=== PATIENT | male | born 1960 | race Caucasian/White ===

== ENCOUNTER 2019-10-07 11:41 | Outpatient (CLI) | payer OTHER, SELFPAY ==
[2019-10-07 11:53] LABS: Basophils Absolute Auto 0.05 K/mm3 (0.00-0.10); Basophils Percent Auto 0.6 % (0.0-1.0); Eosinophils Absolute Auto 0.03 K/mm3 (0.02-0.50); Eosinophils Percent Auto 0.4 % (1.0-6.0); Hematocrit 40.4 % (40.0-54.0); Hemoglobin 14.2 g/dL (14.0-18.0); Immature Granulocyte Absolute 0.03 K/mm3 (0.00-0.00); Immature Granulocyte Percent A 0.4 % (0.0-0.0); Lymphocytes Absolute Auto 2.85 K/mm3 (1.10-4.50); Lymphocytes Percent Auto 35.8 % (18.0-42.0); Mean Corpuscular HGB Conc 35.1 g/dL (32.0-36.0); Mean Corpuscular Hemoglobin 32.7 pg (27.0-31.0); Mean Corpuscular Volume 93.1 fL (78.0-102.0); Mean Platelet Volume 9.5 fl (8.7-11.0); Monocytes Absolute Auto 0.71 K/mm3 (0.10-0.90); Monocytes Percent Auto 8.9 % (2.0-11.0); Neutrophils Absolute Auto 4.3 K/mm3 (1.7-7.2); Neutrophils Percent Auto 53.9 % (50.0-70.0); Platelet Count Result 280 K/mm3 (150-420); Red Blood Count 4.34 M/mm3 (4.70-6.10)
== END 2019-10-07 11:42 | disposition home or self-care (01) ==
LOC: CHSLAB 11:43
PROVIDERS: PCP Internal Medicine; Visit Provider Internal Medicine Hematology & Oncology
DX: D64.9 Anemia, unspecified (principal)
CPT/HCPCS: 36415; 85025

== ENCOUNTER 2019-11-12 09:27 | Outpatient (CLI) | payer OTHER, SELFPAY ==
[2019-11-12 10:59] LABS: Prostate Specific Antigen < 0.1 ng/mL (< OR = 4.0)
== END 2019-11-12 09:28 | disposition home or self-care (01) ==
PROVIDERS: PCP Internal Medicine; Visit Provider Urology
DX: C61 Malignant neoplasm of prostate (principal)
CPT/HCPCS: 36415; 84153

== ENCOUNTER 2020-01-16 14:12 | Outpatient (CLI) | payer OTHER, SELFPAY ==
[2020-01-16 15:19] LABS: SARS-CoV-2 Ag Negative (Negative)
== END 2020-01-16 14:13 | disposition home or self-care (01) ==
LOC: CHSLAB 14:15
PROVIDERS: PCP Internal Medicine; Visit Provider Internal Medicine
DX: Z20.828 Contact with and (suspected) exposure to other viral communicable diseases (principal)
CPT/HCPCS: 87426

== ENCOUNTER 2020-02-14 08:44 | Outpatient (CLI) | payer OTHER, SELFPAY ==
[2020-02-14 08:54] LABS: Add Urine Microscopic? NO; Appearance Urine Clear (Clear); Bilirubin Urine Negative (Negative); Blood Urine Negative (Negative); Color Urine Yellow (Yellow); Glucose Urine UA Negative (Negative); Ketones Urine Negative (Negative); Leukocyte Esterase Ur Negative (Negative); Nitrate Urine Negative (Negative); Protein Urine Negative (Negative); Specific Grav Ur 1.025 (1.010-1.020); Urobilinogen Urine 0.2 mg/dL (0.2-1.0)
[2020-02-14 09:35] LABS: Hemoglobin A1C 5.5 % (<5.7)
[2020-02-14 09:56] LABS: Alanine Aminotransferase 31 U/L (16-63); Albumin Level 3.9 g/dL (3.4-5.0); Alkaline Phosphatase 83 U/L (46-116); Anion Gap 7 mmol/L (8-16); Aspartate Amino Transferase 17 U/L (15-37); Bilirubin,Total 0.5 mg/dL (0.00-1.00); Blood Urea Nitrogen 17 mg/dL (7-18); Calcium 8.8 mg/dL (8.5-10.1); Carbon Dioxide 27 mmol/L (21-32); Chloride 103 mmol/L (98-108); Cholesterol 198 mg/dL (0-200); Creatine Kinase 82 U/L (39-308); Estimated Glomerular Filt Rate > 60; Glucose 103 mg/dL (70-99); HDL Direct 34 mg/dL (40-60); LDL Cholesterol Calculated 129 mg/dL (<130); Osmolality Calculated 285 mOsm/kg (285-295); Potassium 4.1 mmol/L (3.5-5.1); Sodium 137 mmol/L (136-145); Total Protein 7.8 g/dL (6.4-8.2); Triglycerides 174 mg/dL (0-150)
== END 2020-02-14 08:45 | disposition home or self-care (01) ==
LOC: CHSLAB 08:46
PROVIDERS: PCP Internal Medicine; Visit Provider Internal Medicine
DX: E78.2 Mixed hyperlipidemia (principal); I10 Essential (primary) hypertension; R73.01 Impaired fasting glucose
CPT/HCPCS: 36415; 80053; 80061; 81003; 82550; 83036

== ENCOUNTER 2020-02-27 10:15 | Outpatient (CLI) | payer OTHER, SELFPAY ==
[2020-02-27 10:44] LABS: SARS-CoV-2 Ag Negative (Negative)
== END 2020-02-27 10:16 | disposition home or self-care (01) ==
LOC: CHSLAB 10:16
PROVIDERS: PCP Internal Medicine; Visit Provider Internal Medicine
DX: Z20.828 Contact with and (suspected) exposure to other viral communicable diseases (principal)
CPT/HCPCS: 87426

== ENCOUNTER 2020-05-18 12:05 | Outpatient (CLI) | payer OTHER, SELFPAY ==
[2020-05-18 14:06] LABS: Prostate Specific Antigen < 0.1 ng/mL (< OR = 4.0)
== END 2020-05-18 12:06 | disposition home or self-care (01) ==
LOC: CHSLAB 12:07
PROVIDERS: PCP Internal Medicine; Visit Provider Urology
DX: C61 Malignant neoplasm of prostate (principal)
CPT/HCPCS: 36415; 84153

== ENCOUNTER 2020-12-31 09:14 | Outpatient (CLI) | payer OTHER, SELFPAY ==
[2020-12-31 09:39] LABS: Add Urine Microscopic? NO; Appearance Urine Clear (Clear); Bilirubin Urine Negative (Negative); Blood Urine Negative (Negative); Color Urine Yellow (Yellow); Glucose Urine UA Negative (Negative); Ketones Urine Negative (Negative); Leukocyte Esterase Ur Negative (Negative); Nitrate Urine Negative (Negative); Protein Urine Negative (Negative); Specific Grav Ur 1.025 (1.010-1.020)
[2020-12-31 09:40] LABS: Hemoglobin A1C 5.5 % (<5.7)
[2020-12-31 10:23] LABS: Alanine Aminotransferase 35 U/L (16-63); Albumin Level 3.9 g/dL (3.4-5.0); Alkaline Phosphatase 94 U/L (46-116); Anion Gap 9 mmol/L (8-16); Aspartate Amino Transferase 17 U/L (15-37); Blood Urea Nitrogen 18 mg/dL (7-18); Carbon Dioxide 28 mmol/L (21-32); Chloride 103 mmol/L (98-108); Cholesterol 198 mg/dL (0-200); Creatine Kinase 113 U/L (39-308); Estimated Glomerular Filt Rate > 60; Glucose 95 mg/dL (70-99); HDL Direct 35 mg/dL (40-60); LDL Cholesterol Calculated 142 mg/dL (<130); Osmolality Calculated 291 mOsm/kg (285-295); Sodium 140 mmol/L (136-145); Total Protein 7.6 g/dL (6.4-8.2); Triglycerides 106 mg/dL (0-150)
== END 2020-12-31 09:15 | disposition home or self-care (01) ==
LOC: CHSLAB 09:16
PROVIDERS: PCP Internal Medicine; Visit Provider Internal Medicine
DX: E78.2 Mixed hyperlipidemia (principal); I10 Essential (primary) hypertension; R73.01 Impaired fasting glucose
CPT/HCPCS: 36415; 80053; 80061; 81003; 82550; 83036

== ENCOUNTER 2021-02-06 11:21 | Outpatient (CLI) | payer OTHER, SELFPAY ==
[2021-02-06 12:29] LABS: Prostate Specific Antigen < 0.1 ng/mL (< OR = 4.0)
== END 2021-02-06 11:22 | disposition home or self-care (01) ==
LOC: CHSLAB 11:23
PROVIDERS: PCP Internal Medicine; Visit Provider Urology
DX: C61 Malignant neoplasm of prostate (principal)
CPT/HCPCS: 36415; 84153

== ENCOUNTER 2021-08-26 08:04 | Outpatient (CLI) | payer OTHER, SELFPAY ==
[2021-08-26 08:33] LABS: Hemoglobin A1C 5.6 % (<5.7)
[2021-08-26 08:56] LABS: Alanine Aminotransferase 36 U/L (16-63); Albumin Level 3.8 g/dL (3.4-5.0); Alkaline Phosphatase 92 U/L (46-116); Anion Gap 8 mmol/L (8-16); Aspartate Amino Transferase 21 U/L (15-37); Bilirubin,Total 0.4 mg/dL (0.00-1.00); Blood Urea Nitrogen 13 mg/dL (7-18); Calcium 8.6 mg/dL (8.5-10.1); Carbon Dioxide 26 mmol/L (21-32); Chloride 105 mmol/L (98-108); Cholesterol 153 mg/dL (0-200); Creatine Kinase 81 U/L (39-308); Estimated Glomerular Filt Rate > 60; Glucose 110 mg/dL (70-99); HDL Direct 38 mg/dL (40-60); LDL Cholesterol Calculated 90 mg/dL (<130); Osmolality Calculated 289 mOsm/kg (285-295); Potassium 3.7 mmol/L (3.5-5.1); Sodium 139 mmol/L (136-145); Total Protein 7.8 g/dL (6.4-8.2); Triglycerides 124 mg/dL (0-150)
== END 2021-08-26 08:05 | disposition home or self-care (01) ==
LOC: CHSLAB 08:06
PROVIDERS: PCP Internal Medicine; Visit Provider Internal Medicine
DX: E78.2 Mixed hyperlipidemia (principal); R73.01 Impaired fasting glucose; I10 Essential (primary) hypertension
CPT/HCPCS: 36415; 80053; 80061; 82550; 83036

== ENCOUNTER 2021-09-13 09:27 | Outpatient (CLI) | payer OTHER, SELFPAY ==
[2021-09-13 10:56] LABS: Prostate Specific Antigen < 0.1 ng/mL (< OR = 4.0)
== END 2021-09-13 09:28 | disposition home or self-care (01) ==
LOC: CHSLAB 09:30
PROVIDERS: PCP Internal Medicine; Visit Provider Urology
DX: C61 Malignant neoplasm of prostate (principal)
CPT/HCPCS: 36415; 84153

== ENCOUNTER 2022-03-12 07:42 | Outpatient (CLI) | payer OTHER, SELFPAY ==
[2022-03-12 08:02] LABS: Add Urine Microscopic? YES; Appearance Urine Clear (Clear); Basophils Absolute Auto 0.07 K/mm3 (0.00-0.10); Basophils Percent Auto 0.9 % (0.0-1.0); Bilirubin Urine Negative (Negative); Blood Urine Trace-Intact (Negative); Color Urine Light Yellow (Yellow); Eosinophils Absolute Auto 0.11 K/mm3 (0.02-0.50); Eosinophils Percent Auto 1.4 % (1.0-6.0); Glucose Urine UA Negative (Negative); Hematocrit 41.7 % (40.0-54.0); Hemoglobin 14.2 g/dL (14.0-18.0); Immature Granulocyte Absolute 0.02 K/mm3 (0.00-0.00); Immature Granulocyte Percent A 0.3 % (0.0-0.0); Ketones Urine Negative (Negative); Leukocyte Esterase Ur Negative (Negative); Lymphocytes Percent Auto 44.8 % (18.0-42.0); Mean Corpuscular HGB Conc 34.1 g/dL (32.0-36.0); Mean Corpuscular Hemoglobin 32.3 pg (27.0-31.0); Monocytes Absolute Auto 0.79 K/mm3 (0.10-0.90); Monocytes Percent Auto 10.1 % (2.0-11.0); Neutrophils Absolute Auto 3.3 K/mm3 (1.7-7.2); Neutrophils Percent Auto 42.5 % (50.0-70.0); Nitrate Urine Negative (Negative); Platelet Count Result 291 K/mm3 (150-420); Protein Urine Negative (Negative); Red Blood Count 4.39 M/mm3 (4.70-6.10); Red Cell Distribution Width 11.1 % (11.6-14.4); Specific Grav Ur 1.025 (1.010-1.020); Urobilinogen Urine 0.2 mg/dL (0.2-1.0); White Blood Count 7.8 K/mm3 (4.8-10.8)
[2022-03-12 08:11] LABS: Hemoglobin A1C 5.3 % (<5.7)
[2022-03-12 08:34] LABS: Alanine Aminotransferase 25 U/L (16-63); Albumin Level 3.9 g/dL (3.4-5.0); Alkaline Phosphatase 86 U/L (46-116); Anion Gap 7 mmol/L (8-16); Aspartate Amino Transferase 16 U/L (15-37); Bilirubin,Total 0.4 mg/dL (0.00-1.00); Blood Urea Nitrogen 19 mg/dL (7-18); Calcium 8.5 mg/dL (8.5-10.1); Carbon Dioxide 28 mmol/L (21-32); Chloride 103 mmol/L (98-108); Cholesterol 158 mg/dL (0-200); Creatine Kinase 67 U/L (39-308); Estimated Glomerular Filt Rate > 60; Glucose 104 mg/dL (70-99); HDL Direct 38 mg/dL (40-60); LDL Cholesterol Calculated 97 mg/dL (<130); Osmolality Calculated 288 mOsm/kg (285-295); Potassium 4.2 mmol/L (3.5-5.1); Sodium 138 mmol/L (136-145); Total Protein 7.7 g/dL (6.4-8.2); Triglycerides 117 mg/dL (0-150)
[2022-03-12 08:35] LABS: Prostate Specific Antigen < 0.1 ng/mL (< OR = 4.0)
[2022-03-12 08:36] LABS: Bacteria Urine Trace /hpf; RBC Urine 0-2 /hpf (0-2); Squamous Epithelial Cell Urine Rare /hpf (Few); WBC Urine None seen /hpf (0-3)
== END 2022-03-12 07:43 | disposition home or self-care (01) ==
PROVIDERS: PCP Internal Medicine; Visit Provider Urology
DX: C61 Malignant neoplasm of prostate (principal); R73.01 Impaired fasting glucose; I10 Essential (primary) hypertension; E78.2 Mixed hyperlipidemia; Z85.46 Personal history of malignant neoplasm of prostate
CPT/HCPCS: 36415; 80053; 80061; 81001; 82550; 83036; 84153; 85025

== ENCOUNTER 2022-05-03 10:22 | Outpatient (CLI) | payer OTHER, SELFPAY ==
--- NOTE | ~2022-05-03 | US_ITS ---
EXAMINATION: US aorta DATE: 05/03/2022 11:02 INDICATION: TECHNIQUE: Grayscale, color Doppler, and pulsed Doppler images of the aorta and common iliac arteries were obtained. COMPARISON: None. FINDINGS: The aorta displays minimal ectasia of the mid and distal aorta, measuring up to 2.1 cm in the mid aor ta. No aneurysm. The right common iliac artery is normal in caliber. The left common iliac artery is normal in caliber. IMPRESSION: 1. No abdominal aortic aneurysm. Reviewed, dictated and finalized at location K. 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
== END 2022-05-03 10:23 | disposition home or self-care (01) ==
LOC: CHSIMG 10:23
PROVIDERS: PCP Internal Medicine; Visit Provider Internal Medicine
DX: Z13.6 Encounter for screening for cardiovascular disorders (principal)
CPT/HCPCS: 76775

== ENCOUNTER 2022-09-10 08:28 | Outpatient (CLI) | payer OTHER, SELFPAY ==
[2022-09-10 08:59] LABS: Appearance Urine Clear (Clear); Bilirubin Urine Negative (Negative); Blood Urine Negative (Negative); Color Urine Light Yellow (Yellow); Glucose Urine UA Negative (Negative); Ketones Urine Negative (Negative); Leukocyte Esterase Ur Negative (Negative); Nitrate Urine Negative (Negative); Protein Urine Negative (Negative); Specific Grav Ur 1.015 (1.010-1.020); Urobilinogen Urine 0.2 mg/dL (0.2-1.0); pH Urine 6.5 (5.0-8.0)
[2022-09-10 09:05] LABS: Creatinine Urine 174.07 mg/dL (40-278); MALB Creatinine Ratio 7.4 mg/g (0-30); Microalbumin Urine Random < 13.0 mg/L
[2022-09-10 09:07] LABS: Hemoglobin A1C 5.2 % (<5.7)
[2022-09-10 09:24] LABS: Add Urine Microscopic? NO
[2022-09-10 09:45] LABS: Alanine Aminotransferase 31 U/L (16-63); Alkaline Phosphatase 85 U/L (46-116); Anion Gap 10 mmol/L (8-16); Aspartate Amino Transferase 21 U/L (15-37); Bilirubin,Total 0.4 mg/dL (0.00-1.00); Blood Urea Nitrogen 15 mg/dL (7-18); Calcium 8.9 mg/dL (8.5-10.1); Carbon Dioxide 27 mmol/L (21-32); Chloride 103 mmol/L (98-108); Cholesterol 139 mg/dL (0-200); Creatine Kinase 224 U/L (39-308); Estimated Glomerular Filt Rate > 60; Glucose 118 mg/dL (70-99); HDL Direct 41 mg/dL (40-60); LDL Cholesterol Calculated 86 mg/dL (<130); Osmolality Calculated 291 mOsm/kg (285-295); Sodium 140 mmol/L (136-145); Total Protein 7.5 g/dL (6.4-8.2); Triglycerides 59 mg/dL (0-150)
[2022-09-10 09:49] LABS: Prostate Specific Antigen < 0.1 ng/mL (< OR = 4.0)
== END 2022-09-10 08:29 | disposition home or self-care (01) ==
LOC: CHSLAB 08:29
PROVIDERS: PCP Internal Medicine; Visit Provider Urology
DX: C61 Malignant neoplasm of prostate (principal); E78.2 Mixed hyperlipidemia; I10 Essential (primary) hypertension; R73.01 Impaired fasting glucose
CPT/HCPCS: 36415; 80053; 80061; 81003; 82043; 82550; 83036; 84153

== ENCOUNTER → 2022-09-27 11:26 | Outpatient (CLI) | payer OTHER, SELFPAY ==
--- NOTE | ~2022-09-27 | CT_ITS ---
CT Scan of the Chest without Contrast: Clinical Indication: Lung cancer screening, personal history of nicotine dependence Technique: Contiguous sections were acquired throughout the chest without intravenous contrast. Dose reduction technique was used on this scan by utilizing automated exposure control and iterative recon struction technique. The dose-length product (DLP) was 154.63 mGy-cm. Findings: There is no evidence of any significant mediastinal, hilar or axillary lymphadenopathy. The mediastin al soft tissues appear normal. There is no evidence of pleural or pericardial effusion. There is an 8 mm nodule the right lower lobe peripherally, possible tiny calcification within it (axi al image 82). Images through the upper abdomen reveal no abnormalities. Impression: Lung RADS 4A: Suspicious. 3 month follow-up CT recommended. Reviewed, dictated and finalized at location . Impression: Lung RADS 4A: Suspicious. 3 month follow-up CT recommended.
== END ==
PROVIDERS: PCP Internal Medicine; Visit Provider Internal Medicine
DX: Z12.2 Encounter for screening for malignant neoplasm of respiratory organs (principal); Z87.891 Personal history of nicotine dependence; R91.8 Other nonspecific abnormal finding of lung field
CPT/HCPCS: 71271

== ENCOUNTER 2022-10-20 00:28 | Day surgery (SDC) | payer OTHER, SELFPAY ==
[2022-10-11 15:02] VITALS: BMI 29.6
[2022-10-20 06:28] VITALS: BP 112/79; PULSE 52; RESP 18; TEMP 36.2; O2SAT 100
[2022-10-20] MEDS: LACTATED RINGERS 1,000 ML 150 ML IV CONT (06:35)
--- NOTE | 2022-10-20 06:46 | P.PNAN_ITS ---
Anes - Initial Pre Proc Eval Procedure: Operation Date: 10/20/22 07:30 Proposed Procedures p Screening Colonoscopy - Brayden Parson DO Date/Time: 10/20/22 06:46 Surgeon: Brayden Parson DO Pre Op Diagnosis: neoplasm screening Patient Data Age: 62 Gender: M Height: 1.8 m Weight: 96.4 kg Last Vital Signs Temp 36.2 C L 10/20/22 06:28 Pulse 52 L 10/20/22 06:28 Resp 18 10/20/22 06:28 BP 112/79 10/20/22 06:28 Pulse Ox 100 10/20/22 06:28 O2 Del Method Room Air 10/20/22 06:28 Allergies Allergy/AdvReac Type Severity Reaction Status Date / Time alprazolam AdvReac Severe confusion/a Verified 10/20/22 06:27 gitation morphine AdvReac Intermediate HALLUCINATE Verified 10/20/22 06:27 Home Medications Medication Instructions Recorded Confirmed Type amlodipine 10 mg tablet 10 mg PO DAILY 10/11/22 10/11/22 History aspirin 81 mg tablet 81 mg PO DAILY 10/11/22 10/11/22 History pravastatin 10 mg tablet 10 mg PO DAILY 10/11/22 10/11/22 History Patient hx anesthesia problems: none Family hx anesthesia problems: none Results Review: All pre-operative results and documents have been reviewed as part of the pre- operative evaluation. ON LICENSE OF [facility] Past Medical History Medical History (Updated 10/20/22 @ 06:46 by Nahum Kumar MD) HTN (hypertension) Hyperlipidemia Prostate CA Surgical History Surgical History (Updated 10/20/22 @ 06:47 by Nahum Kumar MD) H/O prostatectomy Social History Social History Smoking status: Former smoker Substance use type: does not use Living arrangements: with family Spiritual care concerns: No Anes - Eval Final PreProcedure Day of Procedure 10/20/22 06:46 Patient weight: overweight Heart: regular rate and rhythm Lungs: clear to auscultation Airway: Mallampati scale class II Neurological: alert and oriented Last oral intake: >/= 8 hours ASA classification: III Emergent: no Anesthetic plan: proceed Anesthesia type and monitoring: general GIVS and standard monitoring Results Review: All pre-operative results and documents have been reviewed as part of the pre- operative evaluation. Informed Consent: The patient's anesthetic plan and its attendant risks and benefits were discussed with the patient/family/POA. Questions were solicited and answers provided to the satisfaction of the patient/family/POA.
--- NOTE | 2022-10-20 07:32 | PM.IMHP ---
H&P: HPI History of Present Illness Date/Time: 10/20/22 07:32 Chief Complaint: Screening for colorectal cancer Narrative: 62 yo man presents for colonoscopy. Last done 5 years ago. Denies hematochezia or melena. + Fam hx colon cancer in his mom. Review of Systems Review of Systems: All systems reviewed & are unremarkable except as noted in HPI and below Constitutional: Constitutional: Denies chills, Denies fever(s), Denies headache(s) and Denies weight loss Eyes: Eyes: Denies change in vision ENT: Denies dizziness, Denies headache(s), Denies neck mass and Denies throat swelling Cardiovascular: Cardiovascular: Denies chest pain, Denies lightheadedness and Denies dyspnea Respiratory: Respiratory: Denies cough, Denies dyspnea and Denies wheezing Gastrointestinal: Gastrointestinal: Denies abdominal pain, Denies change in bowel habits, Denies nausea and Denies vomiting Genitourinary: Genitourinary: Denies hematuria and Denies dysuria Musculoskeletal: Musculoskeletal: Reports as per HPI Integumentary/Breasts: Skin/Breast: Reports as per HPI Neurologic: Denies dizziness and Denies headache(s) Allergic/Immunologic: Allergic/Immunologic: Denies throat swelling and Denies wheezing [facility] Past Medical History Medical History (Updated 10/20/22 @ 07:33 by Brayden Parson DO) Family hx of colon cancer HTN (hypertension) Hyperlipidemia Prostate CA Surgical History Surgical History (Updated 10/20/22 @ 06:47 by Nahum Kumar MD) H/O prostatectomy Social History Social History Smoking status: Former smoker Substance use type: does not use Living arrangements: with family Spiritual care concerns: No Meds Home Medications and Allergies Home Medications Medication Instructions Recorded Confirmed Type amlodipine 10 mg tablet 10 mg PO DAILY 10/11/22 10/11/22 History aspirin 81 mg tablet 81 mg PO DAILY 10/11/22 10/11/22 History pravastatin 10 mg tablet 10 mg PO DAILY 10/11/22 10/11/22 History Allergies Allergy/AdvReac Type Severity Reaction Status Date / Time alprazolam AdvReac Severe confusion/a Verified 10/20/22 06:27 gitation morphine AdvReac Intermediate HALLUCINATE Verified 10/20/22 06:27 Vital Signs Vital Signs - 24 hr 10/20/22 06:28 Temperature 36.2 C L Pulse Rate 52 L Respiratory Rate 18 Blood Pressure 112/79 Pulse Oximetry 100 Oxygen Delivery Room Air Exam Const: General: no acute distress and alert Orientation/consciousness: patient oriented x3 HENMT: Head: normocephalic and atraumatic Ears: hearing grossly normal bilaterally Face/Nose/Sinus: Normal nares present Mouth: Yes Normal oral and palatal mucosa present Eyes: Periorbital: periorbital findings normal Sclera: sclerae normal EOM: EOMs intact bilaterally Neck: Neck: normal visual inspection, no lymphadenopathy and trachea midline Chest: Chest palpation & inspection: normal inspection of the chest Resp: Effort & Inspection: normal respiratory effort Auscultation: clear to auscultation bilaterally Cardio: Jugular venous distension: no JVD Rate: regular rate Rhythm: regular rhythm Heart sounds: S1 normal heart sound present and S2 normal heart sound present Peripheral pulses: Peripheral pulses 2+ throughout GI: Inspection: normal to inspection GI Palp: Yes Soft to palpation, No Tenderness to palpation present (GI), No Guarding due to palpation present (GI) and No Rebound tenderness present Percussion: Yes normal to percussion Auscultation: normal bowel sounds : General: Yes no CVA tenderness Back/Spine/Pelvis: Back: no CVA tenderness Neuro: General: patient oriented x3, no focal motor deficits and CN's II-XI intact bilaterally Cognition (Neuro): normal cognition Speech: normal speech Motor exam (neuro): 5/5 motor strength present throughout Extrem: General: capillary refill normal and no clubbing, cyanosis or edema Assessm
[2022-10-20 08:08] VITALS: BP 115/73; PULSE 52; RESP 18; O2SAT 98
[2022-10-20 08:18] VITALS: BP 110/73; PULSE 52; RESP 15; O2SAT 100
[2022-10-20 08:28] VITALS: BP 117/82; PULSE 57; RESP 21; O2SAT 100
== END 2022-10-20 08:37 | disposition home or self-care (01) ==
PROVIDERS: PCP Internal Medicine; Visit Provider Surgery
PROC: 0DJD8ZZ Inspection of Lower Intestinal Tract, Via Natural or Artificial Opening Endoscopic (ICD-10-PCS; CPT 45378; principal; 2022-10-20 07:30)
DX: Z12.11 Encounter for screening for malignant neoplasm of colon (principal); D12.5 Benign neoplasm of sigmoid colon; K63.5 Polyp of colon; K57.30 Diverticulosis of large intestine without perforation or abscess without bleeding; I10 Essential (primary) hypertension; E78.5 Hyperlipidemia, unspecified; Z80.0 Family history of malignant neoplasm of digestive organs; Z85.46 Personal history of malignant neoplasm of prostate; Z87.891 Personal history of nicotine dependence; Z79.82 Long term (current) use of aspirin
CPT/HCPCS: 45380; 45385; 88305; J2704; J7120

== ENCOUNTER 2023-01-04 08:55 | Outpatient (CLI) | payer OTHER, SELFPAY ==
--- NOTE | ~2023-01-04 | CT_ITS ---
Clinical Indication: Pulmonary nodule CT Scan of the Chest with Contrast: Technique: Contiguous sections were acquired throughout the chest after intravenous administration of 75 cc of Omnipaque 350. Dose reduction technique was used on this scan by utilizing automated exposu re control and iterative reconstruction technique. The dose-length product (DLP) was 455.20 mGy-cm. COMPARISON: 09/27/2022 Findings: There is no evidence of any significant mediastinal, hilar or axillary lymphadenopathy. There is no f illing defect in the pulmonary arterial tree to suggest pulmonary embolus. There is no evidence of ao rtic dissection or aneurysm. There is no evidence of pleural or pericardial effusion. Stable 7 mm peripheral right lower lobe pulmonary nodule, possible tiny central calcification (axial image 80). Focal scarring right middle lobe is unchanged. Focal scarring left lung base and lingula i s unchanged. Images through the upper abdomen reveal no abnormalities. Impression: Stable 7 mm right lower lobe pulmonary nodule. Stable areas of focal pleural scarring. Reviewed, dictated and finalized at location . ARD REPORTER Impression: Stable 7 mm right lower lobe pulmonary nodule. Stable areas of focal pleural scarring.
[2023-01-04 09:26] LABS: Estimated Glomerular Filt Rate > 60
== END 2023-01-04 08:56 ==
DX: R91.1 Solitary pulmonary nodule (principal); J98.4 Other disorders of lung
CPT/HCPCS: 71260; Q9967

== ENCOUNTER 2023-03-28 08:32 | Outpatient (CLI) | payer OTHER, SELFPAY ==
[2023-03-28 08:54] LABS: Basophils Absolute Auto 0.06 K/mm3 (0.00-0.10); Basophils Percent Auto 0.8 % (0.0-1.0); Eosinophils Absolute Auto 0.12 K/mm3 (0.02-0.50); Eosinophils Percent Auto 1.7 % (1.0-6.0); Hematocrit 42.8 % (37.0-46.0); Hemoglobin 14.1 g/dL (12.4-15.3); Immature Granulocyte Absolute 0.02 K/mm3 (0.00-0.00); Immature Granulocyte Percent A 0.3 % (0.0-0.0); Lymphocytes Absolute Auto 2.79 K/mm3 (1.10-4.50); Lymphocytes Percent Auto 39.4 % (18.0-42.0); Mean Corpuscular HGB Conc 32.9 g/dL (32.0-36.0); Mean Corpuscular Hemoglobin 30.8 pg (27.0-31.0); Mean Corpuscular Volume 93.4 fL (78.0-102.0); Mean Platelet Volume 9.7 fl (8.7-11.0); Monocytes Absolute Auto 0.75 K/mm3 (0.10-0.90); Monocytes Percent Auto 10.6 % (2.0-11.0); Neutrophils Absolute Auto 3.4 K/mm3 (1.7-7.2); Neutrophils Percent Auto 47.2 % (50.0-70.0); Platelet Count Result 306 K/mm3 (150-420); Red Blood Count 4.58 M/mm3 (4.70-6.10); Red Cell Distribution Width 11.3 % (11.6-14.4); White Blood Count 7.1 K/mm3 (4.8-10.8)
[2023-03-28 08:55] LABS: Appearance Urine Clear (Clear); Bilirubin Urine Negative (Negative); Blood Urine Negative (Negative); Color Urine Yellow (Yellow); Glucose Urine UA Negative (Negative); Ketones Urine Negative (Negative); Leukocyte Esterase Ur Negative (Negative); Nitrate Urine Negative (Negative); Protein Urine Negative (Negative); Urobilinogen Urine 0.2 mg/dL (0.2-1.0); pH Urine 6.5 (5.0-8.0)
[2023-03-28 08:56] LABS: Add Urine Microscopic? YES
[2023-03-28 09:12] LABS: Hemoglobin A1C 5.3 % (<5.7)
[2023-03-28 10:14] LABS: Alanine Aminotransferase 29 U/L (16-63); Albumin Level 3.7 g/dL (3.4-5.0); Alkaline Phosphatase 88 U/L (46-116); Anion Gap 7 mmol/L (8-16); Aspartate Amino Transferase 17 U/L (15-37); Bilirubin,Total 0.3 mg/dL (0.00-1.00); Blood Urea Nitrogen 18 mg/dL (7-18); Calcium 8.4 mg/dL (8.5-10.1); Carbon Dioxide 30 mmol/L (21-32); Chloride 104 mmol/L (98-108); Cholesterol 146 mg/dL (0-200); Estimated Glomerular Filt Rate > 60; Glucose 107 mg/dL (70-99); HDL Direct 42 mg/dL (40-60); LDL Cholesterol Calculated 92 mg/dL (<130); Osmolality Calculated 293 mOsm/kg (285-295); Potassium 4.6 mmol/L (3.5-5.1); Sodium 141 mmol/L (136-145); Total Protein 7.4 g/dL (6.4-8.2); Triglycerides 61 mg/dL (0-150)
[2023-03-28 10:15] LABS: Prostate Specific Antigen < 0.1 ng/mL (< OR = 4.0)
== END 2023-03-28 08:33 | disposition home or self-care (01) ==
PROVIDERS: PCP Internal Medicine; Visit Provider Urology
DX: C61 Malignant neoplasm of prostate (principal); I10 Essential (primary) hypertension; R73.01 Impaired fasting glucose; M85.4 Solitary bone cyst
CPT/HCPCS: 36415; 80053; 80061; 81001; 83036; 84153; 85025

== ENCOUNTER 2023-06-21 09:51 | Outpatient (CLI) | payer OTHER, SELFPAY ==
--- NOTE | ~2023-06-21 | CT_ITS ---
Clinical Indication: Lung nodule CT Scan of the Chest with Contrast: Technique: Contiguous sections were acquired throughout the chest after intravenous administration of 75 cc of Omnipaque 350. Dose reduction technique was used on this scan by utilizing automated exposu re control and iterative reconstruction technique. The dose-length product (DLP) was 493.49 mGy-cm. COMPARISON: 01/04/2023 Findings: There is no evidence of any significant mediastinal, hilar or axillary lymphadenopathy. No large cent ral pulmonary was evident. There is no evidence of aortic dissection or aneurysm. There is no evidence of pleural or pericardial effusion. Stable 8 mm right lower lobe pulmonary nodule peripherally (axial image 87). Images through the upper abdomen reveal no abnormalities. There is DISH of the thoracic spine. Impression: Stable 8 mm right lower lobe pulmonary nodule. Reviewed, dictated and finalized at location . Impression: Stable 8 mm right lower lobe pulmonary nodule.
[2023-06-21 10:17] LABS: Estimated Glomerular Filt Rate > 60
== END 2023-06-21 09:52 ==
LOC: MICIMG 09:52
PROVIDERS: PCP Thoracic Surgery (Cardiothoracic Vascular Surgery)
DX: R91.1 Solitary pulmonary nodule (principal)
CPT/HCPCS: 71260; Q9967

== ENCOUNTER 2023-09-14 07:22 | Outpatient (CLI) | payer OTHER, SELFPAY ==
[2023-09-14 07:46] LABS: Appearance Urine Clear (Clear); Basophils Absolute Auto 0.11 K/mm3 (0.00-0.10); Basophils Percent Auto 1.1 % (0.0-1.0); Bilirubin Urine Negative (Negative); Blood Urine Negative (Negative); Color Urine Light Yellow (Yellow); Eosinophils Absolute Auto 0.21 K/mm3 (0.02-0.50); Eosinophils Percent Auto 2.1 % (1.0-6.0); Glucose Urine UA Negative (Negative); Hematocrit 46.2 % (37.0-46.0); Hemoglobin 15.6 g/dL (12.4-15.3); Immature Granulocyte Absolute 0.07 K/mm3 (0.00-0.00); Immature Granulocyte Percent A 0.7 % (0.0-0.0); Ketones Urine Negative (Negative); Leukocyte Esterase Ur Negative LEU/UL (Negative); Lymphocytes Absolute Auto 3.53 K/mm3 (1.10-4.50); Lymphocytes Percent Auto 34.8 % (18.0-42.0); Mean Corpuscular HGB Conc 33.8 g/dL (32-36); Mean Corpuscular Hemoglobin 31.8 pg (27.0-31.0); Mean Corpuscular Volume 94.3 fL (78.0-102.0); Mean Platelet Volume 10.4 fl (8.7-11.0); Monocytes Absolute Auto 0.92 K/mm3 (0.10-0.90); Monocytes Percent Auto 9.1 % (2.0-11.0); Neutrophils Percent Auto 52.2 % (50.0-70.0); Nitrate Urine Negative (Negative); Platelet Count Result 219 K/mm3 (150-420); Protein Urine Negative (Negative); Red Cell Distribution Width 11.3 % (11.6-14.4); Urobilinogen Urine 0.2 mg/dL (0.2-1.0); White Blood Count 10.1 K/mm3 (4.8-10.8)
[2023-09-14 07:48] LABS: Add Urine Microscopic? NO
[2023-09-14 08:00] LABS: Hemoglobin A1C 5.4 % (<5.7)
[2023-09-14 08:30] LABS: Alanine Aminotransferase 49 U/L (16-63); Alkaline Phosphatase 104 U/L (46-116); Anion Gap 9 mmol/L (4-12); Aspartate Amino Transferase 26 U/L (15-37); Bilirubin,Total 0.3 mg/dL (0.00-1.00); Blood Urea Nitrogen 18 mg/dL (7-18); Calcium 9.7 mg/dL (8.5-10.1); Carbon Dioxide 28 mmol/L (21-32); Chloride 101 mmol/L (98-108); Cholesterol 184 mg/dL (0-200); Creatine Kinase 88 U/L (39-308); Estimated Glomerular Filt Rate > 60; Glucose 102 mg/dL (70-99); HDL Direct 40 mg/dL (40-60); LDL Cholesterol Calculated 96 mg/dL (<130); Osmolality Calculated 287 mOsm/kg (285-295); Potassium 4.3 mmol/L (3.5-5.1); Sodium 138 mmol/L (136-145); Triglycerides 239 mg/dL (0-150)
== END 2023-09-14 07:23 | disposition home or self-care (01) ==
LOC: CHSLAB 07:23
PROVIDERS: PCP Internal Medicine; Visit Provider Internal Medicine
DX: I10 Essential (primary) hypertension (principal); E78.2 Mixed hyperlipidemia; R73.01 Impaired fasting glucose; N39.0 Urinary tract infection, site not specified
CPT/HCPCS: 36415; 80053; 80061; 81003; 82550; 83036; 85025

== ENCOUNTER 2023-09-16 11:49 | Outpatient (CLI) | payer OTHER, SELFPAY ==
[2023-09-16 12:45] LABS: Prostate Specific Antigen < 0.1 ng/mL (< OR = 4.0)
== END 2023-09-16 11:50 | disposition home or self-care (01) ==
LOC: CHSLAB 11:51
PROVIDERS: PCP Internal Medicine; Visit Provider Urology
DX: C61 Malignant neoplasm of prostate (principal)
CPT/HCPCS: 36415; 84153

== ENCOUNTER 2023-12-13 11:18 | Outpatient (CLI) | payer OTHER, SELFPAY ==
--- NOTE | ~2023-12-13 | CT_ITS ---
CT Scan of the Chest without Contrast: Clinical Indication: Pulmonary nodule Technique: Contiguous sections were acquired throughout the chest without intravenous contrast. Dose reduction technique was used on this scan by utilizing automated exposure control and iterative recon struction technique. The dose-length product (DLP) was 193.00 mGy-cm. COMPARISON: 06/21/2023 Findings: There is no evidence of any significant mediastinal, hilar or axillary lymphadenopathy. The mediastin al soft tissues appear normal. There is no evidence of pleural or pericardial effusion. Right basilar granuloma with central calcification present. There is peripheral scarring or chronic i nterstitial change at the left lung base. Images through the upper abdomen reveal no abnormalities. Impression: Right lower lobe granuloma, unchanged. Chronic peripheral scarring or interstitial change at the peripheral left lung base. Reviewed, dictated and finalized at [facility]. Impression: Right lower lobe granuloma, unchanged. Chronic peripheral scarring or interstitial change at the peripheral left lung base.
== END 2023-12-13 11:19 | disposition home or self-care (01) ==
LOC: MICIMG 11:19
PROVIDERS: PCP Internal Medicine
DX: J84.10 Pulmonary fibrosis, unspecified (principal); R91.1 Solitary pulmonary nodule
CPT/HCPCS: 71250

== ENCOUNTER 2024-03-22 09:39 | Outpatient (CLI) | payer OTHER, SELFPAY ==
[2024-03-22 10:00] LABS: Basophils Absolute Auto 0.09 K/mm3 (0.00-0.10); Basophils Percent Auto 1.2 % (0.0-1.0); Eosinophils Absolute Auto 0.15 K/mm3 (0.02-0.50); Hematocrit 43.5 % (37.0-46.0); Hemoglobin 14.7 g/dL (12.4-15.3); Immature Granulocyte Absolute 0.04 K/mm3 (0.00-0.00); Immature Granulocyte Percent A 0.5 % (0.0-0.0); Lymphocytes Absolute Auto 2.71 K/mm3 (1.10-4.50); Lymphocytes Percent Auto 36.9 % (18.0-42.0); Mean Corpuscular HGB Conc 33.8 g/dL (32-36); Mean Corpuscular Hemoglobin 31.3 pg (27.0-31.0); Mean Corpuscular Volume 92.6 fL (78.0-102.0); Mean Platelet Volume 9.6 fl (8.7-11.0); Monocytes Percent Auto 10.9 % (2.0-11.0); Neutrophils Absolute Auto 3.55 K/mm3 (1.70-7.20); Neutrophils Percent Auto 48.5 % (50.0-70.0); Platelet Count Result 293 K/mm3 (150-420); Red Cell Distribution Width 11.3 % (11.6-14.4); White Blood Count 7.3 K/mm3 (4.8-10.8)
[2024-03-22 10:01] LABS: Add Urine Microscopic? NO; Appearance Urine Clear (Clear); Bilirubin Urine Negative (Negative); Blood Urine Negative (Negative); Color Urine Yellow (Yellow); Glucose Urine UA Negative (Negative); Ketones Urine Negative (Negative); Leukocyte Esterase Ur Negative (Negative); Nitrate Urine Negative (Negative); Protein Urine Negative (Negative); Specific Grav Ur 1.025 (1.010-1.020); Urobilinogen Urine 0.2 mg/dL (0.2-1.0); pH Urine 6.5 (5.0-8.0)
[2024-03-22 10:14] LABS: Hemoglobin A1C 5.4 % (<5.7)
[2024-03-22 10:30] LABS: Alanine Aminotransferase 39 U/L (16-63); Albumin Level 4.1 g/dL (3.4-5.0); Alkaline Phosphatase 103 U/L (46-116); Anion Gap 8 mmol/L (4-12); Aspartate Amino Transferase 20 U/L (15-37); Bilirubin,Total 0.7 mg/dL (0.00-1.00); Blood Urea Nitrogen 17 mg/dL (7-18); Calcium 9.2 mg/dL (8.5-10.1); Carbon Dioxide 29 mmol/L (21-32); Chloride 103 mmol/L (98-108); Cholesterol 192 mg/dL (0-200); Creatine Kinase 87 U/L (39-308); Estimated Glomerular Filt Rate > 60; Glucose 105 mg/dL (70-99); HDL Direct 43 mg/dL (40-60); LDL Cholesterol Calculated 115 mg/dL (<130); Osmolality Calculated 291 mOsm/kg (285-295); Potassium 4.6 mmol/L (3.5-5.1); Sodium 140 mmol/L (136-145); Total Protein 7.5 g/dL (6.4-8.2); Triglycerides 169 mg/dL (0-150)
== END 2024-03-22 09:40 | disposition home or self-care (01) ==
LOC: CHSLAB 09:42
PROVIDERS: PCP Internal Medicine; Visit Provider Internal Medicine
DX: I10 Essential (primary) hypertension (principal); R73.01 Impaired fasting glucose; E78.2 Mixed hyperlipidemia; M79.10 Myalgia, unspecified site; Z85.46 Personal history of malignant neoplasm of prostate
CPT/HCPCS: 36415; 80053; 80061; 81003; 82550; 83036; 85025

== ENCOUNTER 2024-09-10 09:07 | Outpatient (CLI) | payer OTHER, SELFPAY ==
--- OUTSIDE RECORDS SUMMARY | 2024-09-10 09:23 | XMS_ITS | Clinical Summary ---
Author Organization [facility] Address [address] [place] [address] Care Team Providers Care Web Retailer Name Role Phone Noe Cantu MD Primary Care Provider [phone] Source Comments [facility],non-owned Affiliates and Associated Physician Practices is amultiple site organization consisting of ambulatory clinics and hospital sitesin [place], [place], [place] and [place]. This disclosure is being madepursuant to the Care Everywhere program and may not contain all information available regarding this patient. Last updated 17.[facility] Active Problems Problem Noted Date Diagnosed Date Closed fracture of lower end of left radius with routine healing 03/20/2015 Overview (05/29/2017): IMO load Closed fracture of lower end of right radius Overview (05/29/2017): IMO load Fracture of right carpal bone with routine heali ng 06/05/2014 Pleural effusion, not elsewhere classified 12/13 Laceration of spleen 12/09/2013 Multiple closed fractures of ribs 12/08/2013 Overview (05/29/2017): R 2-6 rib fxs L 2-7 rib fxs Closed displaced bicondylar fracture of tibia Overview (05/29/2017): right Hemothorax 12/08/2013 Closed fracture of sternum 12/08/2013 Overview (05/29/2017): Sternal body fx 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 Pulse 62 01/09/2014 11:49 AM 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 Temperature 37.1 C (98.8 F) 01/09/2014 11:49 AM 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 Respiratory Rate 18 12/23/2013 3:00 PM CDT Oxygen Saturation 96% 12/23/2013 3:00 PM CDT Inhaled Oxygen Concentration - - Weight 97.5 kg (215 lb) 08/07/2014 9:59 AM CDT Height 180.3 cm (5' 11) 08/07/2014 9:59 AM CDT Body Mass Index 29.99 08/07/2014 9:59 AM CDT Plan of Treatment Health Maintenance Due Date Last Done Comments COLOGUARD (AGES 45-75) - COL ON CA SCREENING 1958 COLON MONITORING 1958 COLONOSCOPY - COLON CA SCREENING 1958 CT COLONOGRAPHY - COLON CA SCREENING 1958 Colorectal Cancer Screening 1958 FIT - COLON CA SCREENING 1958 FLEX SIG - COLON CA SCREENING 1958 LIPID TESTING 1958 HEPATITIS C SCREENING 01/10/1976 DTAP/TDAP/TD VACCINES (1 - Tdap) 1977 ZOSTER VACCINE (1 of 2) 01/15/2008 PNEUMOCOCCAL VACCINE 50+ (2 of 2 - PCV) 12/09/2014 12/09/2013 AAA SCREENING 2023 COVID-19 VACCINE (1 - 2023-2 5 season) 2023 DEPRESSION SCREENING 02/28/2024 INFLUENZA VACCINE (#1) 2024 12/09/2013 Respiratory Syncytial Virus (RSV) Vaccine Pt: or over 60 yrs (1 - 1-dose 75+ series) 2033 HEPATITIS B VACCINE Aged Out No longe r eligible based on patient's age to complete this topic HIB VACCINE Aged Out No longer eligi ble based on patient's age to complete this topic HPV VACCINE Aged Out No longer eligi ble based on patient's age to complete this topic MENINGOCOCCAL (Group B) VACC INE SHARED DECISION-MAKING Aged Out No longer eligibl e based on patient's age to complete this topic MENINGOCOCCAL GROUPS A/C/Y/W VACCINE Aged Out No longer eligible b ased on patient's age to complete this topic Insurance CIGNA CIGNA CIGNA Care Teams Web Retailer Relationship Specialty Start Date End Date Noe Cantu MD PCP - General 01/09/14
--- OUTSIDE RECORDS SUMMARY | 2024-09-10 09:23 | XMS_ITS | Continuity of Care Document ---
Author Organization [facility] Address [address] [place] [address] Phone Care Team Providers Care Marketing Strategist Name Role Phone Jeremiah Thompson MD, MD Unavailable Unavail able Allergies, Adverse Reactions, Alerts Substance Reaction Status Criticality No Known Allergies Active No Inform ation Medications Medication Instructions Dosage Effective Dates (start - stop) Status Comments amlodipine 2.5 mg tablet take 1 tablet by oral route every day 2.5 MG - Active Procedures Procedure Date Pre Payment X-ray exam finger(s), minimum 2 views Ja Global/Postop followup visit Supplemental Report X-ray exam finger(s), minimum 2 views De Global/Postop followup visit Clsd Tx Distal Phalanx Stack Splint, Finger Office consultation, moderate-high Dec- Advance Directives Directive Yes / No Effective Date File Name No Information Encounters Encounter Description Practice Location Reason(s) For Visit Diagnoses Date Provider Providers Copied on Encounter [facility], [address], [id number], [place] tel:[phone] [facility] No Information Donna Daniels. [address], [address], [place], [place], [id number], [place]. tel:[phone] [facility], [address], [id number], [place] tel:[phone] [facility] No Information 4 Donna Daniels. [address] [address], [place], [place], [id number], [place]. tel:[phone] [facility], [address], [id number], [place] tel:[phone] [facility] Left small finger (chief complaint) Disp fx of dist phalanx of l lit fngr, 7thD 3 Donna Daniels. [facility], [id number], [place]. tel:[phone] [facility], [address], [id number], [place] tel:[phone] [facility] Left small finger (chief complaint) Disp fx of dist phalanx of l lit fngr, 7thD 2 Donna Daniels. [address], [id number], [place]. tel:[phone] Office consultation, moderate-high [facility], [address] [place] [address], [id number], [place] tel:[phone] [facility] Left small finger (chief complaint) Displaced fracture of distal phalanx of left little finger, initial encounter for open fracture 2 Donna Daniels. [address], [id number], [place]. tel:[phone] Referring Provider: Jeremiah Amaya, [address] [place] [address], [place], [address] . tel:[phone] Family History Family Member Type Diagnosis Age At Onset Father Problem (finding) Cancer, unknown Mother Problem (finding) Cancer, unknown Immunizations Vaccine Date Status Comments No Known Immunization histor y Payers Payer name Insurance type Covered republican ID Authoriza titye(s) Yoav Hugo [id number] Social History Type Description Quantity Date Captured Comments Alcohol Use Details Unknown Caffeine Use Details Unknown Tobacco Use Status No Information Smoking Status No Information Sex Male Chief Complaint And Reason For Visit No Information Reason For Referral Reason For Referral No Information Plan Of Treatment Date Type Action Status Referral Ordered: X-ray exam finger(s), minimum 2 views LT ordered History Of Present Illness Encounter Date Complaint History Of Prese nt Illness Left small finger Vicente returns to the office today on March 08, 2022. He is here for follow-up of an injury to the left small finger that occurred 6 weeks ago on January 25, 2022, and resulted in a distal phalanx fracture of the left small finger. Vicente was last seen in the office 4 weeks ago on February 08, 2022. At that time, I recommended that Vicente continue the Stax splint for 4 more weeks. Vicente has been tolerating the splint well. He returns for follow-up today. Left small finger Vicente returns to the office today on February 02, 2022. He is here for follow-up of an injury to the left small finger that occurred 2 weeks ago on January 25, 2022, and resulted in a distal phalanx fracture of the left small finger. Vicente was seen in the office 6 days ago on February 02, 2022. At that time, I gave him a Stax splint to use as needed for his left small finger. I recommended that he follow-up with me today for suture removal. Vicente reports today that he has been tolerating the splint well. He is here for follow-up. Left small finger Vicente present s to the office today on February 02, 2022. He is here because of an injury to the left small finger. Vicente explains that he injured his left small finger at work on January 25, 2022. 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 He has worked in this capacity for about 5 years. 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 The melecio gave way, and Vicente's left small finger got smashed between 2 handles. He had immediate pain with bleeding of the left small finger. Vicente wrapped the finger with towels or tissues, and he then presented to the control room to show the teamcenter consultant. Vicente was then referred to the emergency room at the [facility]. X-rays were taken of the left small finger were taken at the [facility] on January 25, 2022, and I was able to review these left small finger x-ray images. The x-rays show a transverse fracture across the base of the distal phalanx of the left small finger. The fracture is slightly angulated (apex dorsal). Overall the alignment is acceptable. The left small finger wound was irrigated and sutured closed at the [facility]. A splint was placed. Vicente was also prescribed antibiotics. He is here now for further evaluation and treatment of his left small finger. Functional Status Date Functional Assessmen t No Information Instructions Date Instruction Additional Infor mation No Information Assessments Type Assessment Date No Information Patient Care Teams Name Effective Dates (start - stop) Status Members No Information
--- OUTSIDE RECORDS SUMMARY | 2024-09-10 09:24 | XMS_ITS | Clinical Summary ---
Author Organization [facility] Address [address] [place] [address] Care Team Providers Care Compressed Yeast Supervisor Name Role Phone Noe Cantu MD Primary Care Provider [phone] Allergies Active Allergy Reactions Criticality Noted Date Comments Morphine Unknown 10/13/2022 Causes anger Alprazolam Unknown 10/13/2022 Anger Medications cephalexin (KEFLEX) 500 mg capsule Take 1 capsule (500 mg total) by mouth 4 (four) times a day 28 capsule 2 Active Additional Information Patient not taking.Reported on 01/12/2023 amLODIPine (NORVASC) 2.5 mg tablet Take 4 tablets (10 mg total) by mouth daily Active pravastatin (PRAVACHOL) 10 mg tablet 3 Active psyllium 0.52 gram capsule Take 1 capsule (0.52 g total) by mouth daily Active Active Problems Patient Care Coordination No te Formatting of this note migh t be different from the original. Referring provider: Dr. Noe Cantu Mr. Vicente Martinez is a 62-year-old with a lung nodule. On 09/27/2022 the patient underwent a lung cancer screening CT scan which noted an 8 mm right lower lobe lung nodule with a possible tiny calcification within it. Patient is a former smoker who quit in 2013. Patient presents today for further surgical evaluation. Problem Noted Date Diagnosed Date Closed fracture of lower end of left radius with routine healing 03/20/2015 Overview (10/13/2022): IMO load Closed fracture of lower end of right radius Overview (10/13/2022): IMO load Pleural effusion, not elsewhere classified 12/13 Laceration of spleen 12/09/2013 Closed displaced bicondylar fracture of tibia Overview (10/13/2022): right Closed fracture of right carpal bone 12/08/2013 Closed fracture of sternum 12/08/2013 Overview (10/13/2022): Sternal body fx Injury of internal jugular vein 12/08/2013 Overview (10/13/2022): With possible vascular flap Multiple closed fractures of ribs 12/08/2013 Overview (10/13/2022): R 2-6 rib fxs L 2- 7 rib fxs Hemothorax 12/08/2013 Immunizations Immunization Administration Dates Next Due Influenza, Quadrivalent, Spl it, Preservative Free, Intramuscular 01/28/2021 Influenza, Trivalent, IM (MDV) 12/09/2013 Pneumococcal Polysaccharide PPV23 12/09/2013 Tdap 08/16/2019 ZOSTER Recombinant 02/19/2020,08/16/2019 Surgical History Surgery Date Site/Laterality Comments PROSTATE SURGERY 05/28/2018 - 06/26/2018 removal PORT PLACEMENT CHEST >5 YEARS 12/12/2013 N/A Medical History Medical History Date Comments Hypertension Bronchitis Hypercholesteremia Prostate disease Family History Medical History Relation Name Comments Pancreatic cancer Father Colon cancer Mother Brain cancer Niece Stomach cancer Niece Relation Name Status Comments Father Mother Niece Other Social History Tobacco Use Types Packs/Day Years Used Date Smoking Tobacco: Former Cigarettes 0.1 10 1 - 12/07/2013 Smokeless Tobacco: Never Tobacco Cessation:Counseling Given: Not Answered Sex and Gender Information Value Date Recorded Sex Assigned at Not on file Legal 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 Gender Identity Not on file Sexual Orientation Not on file Obstetrics History Last Filed Vital Signs Vital Sign Reading Time Taken Comments Blood Pressure 115/73 01/12/2023 8:24 AM QUANTOMETER OPERATOR Pulse 57 01/12/2023 8:24 AM QUANTOMETER OPERATOR Temperature 36.7 C (98.1 F) 01/12/2023 8:24 AM QUANTOMETER OPERATOR Respiratory Rate 18 01/12/2023 8:24 AM QUANTOMETER OPERATOR Oxygen Saturation 98% 01/12/2023 8:24 AM QUANTOMETER OPERATOR Inhaled Oxygen Concentration - - Weight 99.2 kg (218 lb 12.8 oz) 01/12/2023 8:24 AM QUANTOMETER OPERATOR Height 180.3 cm (5' 11) 01/12/2023 8:24 AM QUANTOMETER OPERATOR Body Mass Index 30.52 01/12/2023 8:24 AM QUANTOMETER OPERATOR Plan of Treatment Health Maintenance Due Date Last Done Comments Colon Cancer Screening-Colonoscopy 1960 Depression Screening 1960 Fall Risk Assessment 1960 Hepatitis C Screening 1960 Prostate Cancer Screening-PSA 1960 Hepatitis B Screening 01/15/1976 Pneumococcal vaccine 65+ (2 of 2 - PCV) 12/09/2014 12/09/2013 Abdominal Aortic Aneurysm (A AA) Screen 2023 12/07/2013 Well Visit 65+ 2023 Covid-19 Vaccine ( season) 2023 01/19/2021, 05/26/2020, 05/05/2020 Influenza Vaccine (Season Ended) 2024 01/29/20, 12/09/2013 DTaP/Tdap/Td Vaccine (2 - Td or Tdap) 08/15/2029 Zoster Vaccine Completed 02/19/2020, 08/16/2019 Insurance CIGNA CIGNA THE LINK Care Teams Compressed Yeast Supervisor Relationship Specialty Start Date End Date Noe Cantu MD [address] [place] [id number] PCP - General Internal Medicine 09/29/22
--- OUTSIDE RECORDS SUMMARY | 2024-09-10 09:24 | XMS_ITS | Referral Summary ---
Author Organization [facility] Address [address] [place] [address] Care Team Providers Care Principal Librarian Name Role Phone Noe Cantu MD Primary Care Provider [phone] Allergies Active Allergy Reactions Criticality Noted Date [...] PPV23 12/09/2013 Tdap 08/16/2019 ZOSTER Recombinant 02/19/2020,08/16/2019 Social History Tobacco Use Types Packs/Day Years Used Date Smoking Tobacco: Former Cigarettes 0.1 10 1 - 12/07/2013 Smokeless Tobacco: Never Tobacco Cessation:Counseling Given: Not Answered Sex and Gender Information Value Date Recorded Sex Assigned at Not on file Legal Sex Male 5:32 PM SPORTS EQUIPMENT SUPERVISOR Gender Identity Not on file Sexual Orientation Not on file Last Filed Vital Signs Vital Sign Reading Time Taken Comments Blood Pressure 115/73 01/12/2023 8:24 AM SPORTS EQUIPMENT SUPERVISOR Pulse 57 01/12/2023 8:24 AM SPORTS EQUIPMENT SUPERVISOR Temperature 36.7 C (98.1 F) 01/12/2023 8:24 AM SPORTS EQUIPMENT SUPERVISOR Respiratory Rate 18 01/12/2023 8:24 AM SPORTS EQUIPMENT SUPERVISOR Oxygen Saturation 98% 01/12/2023 8:24 AM SPORTS EQUIPMENT SUPERVISOR Inhaled Oxygen Concentration - - Weight 99.2 kg (218 lb 12.8 oz) 01/12/2023 8:24 AM SPORTS EQUIPMENT SUPERVISOR Height 180.3 cm (5' 11) 01/12/2023 8:24 AM SPORTS EQUIPMENT SUPERVISOR Body Mass Index 30.52 01/12/2023 8:24 AM SPORTS EQUIPMENT SUPERVISOR Plan of Treatment Not on file Insurance CIGNA [employer] LINK Care Teams Principal Librarian Relationship Specialty Start Date End Date Noe Cantu MD [address] [place] [address] PCP - General Internal Medicine 09/29/22
[2024-09-10 09:35] LABS: Hematocrit 43.2 % (37.0-46.0); Hemoglobin 14.5 g/dL (12.4-15.3); Mean Corpuscular HGB Conc 33.6 g/dL (32-36); Mean Corpuscular Hemoglobin 31.5 pg (27.0-31.0); Mean Corpuscular Volume 93.9 fL (78.0-102.0); Platelet Count Result 285 K/mm3 (150-420); Red Blood Count 4.60 M/mm3 (4.70-6.10); White Blood Count 7.4 K/mm3 (4.8-10.8)
[2024-09-10 09:36] LABS: Add Urine Microscopic? NO; Appearance Urine Clear (Clear); Glucose Urine UA Negative (Negative); Leukocyte Esterase Ur Negative (Negative); Nitrate Urine Negative (Negative); Specific Grav Ur 1.015 (1.010-1.020)
[2024-09-10 09:50] LABS: MALB Creatinine Ratio 5.1 mg/g (0-30)
[2024-09-10 09:57] LABS: Hemoglobin A1C 5.2 % (<5.7)
[2024-09-10 10:02] LABS: Alanine Aminotransferase 22 U/L (6-50); Albumin Level 4.3 g/dL (3.5-5.1); Alkaline Phosphatase 80 U/L (38-126); Anion Gap 7 mmol/L (4-12); Aspartate Amino Transferase 24 U/L (17-59); Bilirubin,Total 0.5 mg/dL (0.2-1.3); Blood Urea Nitrogen 13 mg/dL (9-20); Calcium 8.9 mg/dL (8.4-10.2); Carbon Dioxide 28 mmol/L (22-30); Chloride 107 mmol/L (98-107); Cholesterol 150 mg/dL (0-200); Creatine Kinase 62 U/L (55-170); Estimated Glomerular Filt Rate > 60; Glucose 108 mg/dL (65-110); HDL Direct 38 mg/dL; Osmolality Calculated 295 mOsm/kg (285-295); Potassium 4.6 mmol/L (3.4-5.0); Sodium 142 mmol/L (137-145); Total Protein 7.4 g/dL (6.3-8.2); Triglycerides 92 mg/dL (<150)
== END 2024-09-10 09:08 | disposition home or self-care (01) ==
PROVIDERS: PCP Internal Medicine; Visit Provider Internal Medicine
DX: E78.2 Mixed hyperlipidemia (principal); I10 Essential (primary) hypertension; Z12.5 Encounter for screening for malignant neoplasm of prostate; R73.01 Impaired fasting glucose; Z85.46 Personal history of malignant neoplasm of prostate
CPT/HCPCS: 36415; 80053; 80061; 81003; 82043; 82550; 83036; 85027

== ENCOUNTER 2024-09-21 09:39 | Outpatient (CLI) | payer OTHER, SELFPAY ==
--- OUTSIDE RECORDS SUMMARY | 2024-09-21 09:42 | XMS_ITS | Continuity of Care Document ---
Author Organization [facility] Address [address] [place] [address] Phone Care Team Providers Care Sales Agent Protective Service Name Role Phone Jeremiah Thompson MD, MD [...] Date Provider Providers Copied on Encounter [facility], [address], [id number], [place] tel:[phone] [facility] No Information Donna Daniels. [address], [place], [place], [id number], [place]. tel:[phone] [facility], [address], [id number], [place] tel:[phone] [facility] No Information 4 Donna Daniels. [address] [address], [place], [place], [id number], [place]. tel:[phone] [facility], [address], [id number], [place] tel:[phone] [facility] Left small finger (chief complaint) Disp fx of dist phalanx of l lit fngr, 7thD 3 Donna Daniels. [facility] [address], [id number], [place]. tel:[phone] [facility], [address], [id number], [place] tel:[phone] [facility] Left small finger (chief complaint) Disp fx of dist phalanx of l lit fngr, 7thD 2 Donna Daniels. [address], [id number], [place]. tel:[phone] Office consultation, moderate-high [facility], [address] [place] [address], [id number], [place] tel:[phone] [facility] Left small finger (chief complaint) Displaced fracture of distal phalanx of left little finger, initial encounter for open fracture 2 Donna Daniels. [address], [id number], [place]. tel:[phone] Referring Provider: Jeremiah Amaya, [address] [place] [address], [place], [address] . tel:[phone] Family History Family Member Type Diagnosis Age At Onset Father Problem (finding) Cancer, unknown Mother Problem (finding) Cancer, unknown Immunizations Vaccine Date Status Comments No Known Immunization histor y Payers Payer name Insurance type Covered republican ID Authoriza titye(s) Yoav Hugo [id number] Social History Type Description Quantity Date Captured [...] 25, 2022. 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 Vicente was then referred to the emergency room at the [facility]. X-rays were taken of the left small finger were taken at the [facility] on January 25, 2022, and I was able to review these left small finger x-ray images. The x-rays show a transverse fracture across the base of the distal phalanx of the left small finger. The fracture is slightly angulated (apex dorsal). Overall the alignment is acceptable. The left small finger wound was irrigated and sutured closed at the [facility]. A splint was placed. Vicente was also [...]
--- OUTSIDE RECORDS SUMMARY | 2024-09-21 09:42 | XMS_ITS | Referral Summary ---
Author Organization [facility] Address [address] [place] [address] Care Team Providers Care Full Time Babysitter Name Role Phone Noe Cantu MD Primary Care Provider [phone] Allergies Active Allergy Reactions Criticality Noted Date [...] on file Legal Sex Male 5:32 PM MAINTENANCE ASSOCIATE Gender Identity Not on file Sexual Orientation Not on file Last Filed Vital Signs Vital Sign Reading Time Taken Comments Blood Pressure 115/73 01/12/2023 8:24 AM MAINTENANCE ASSOCIATE Pulse 57 01/12/2023 8:24 AM MAINTENANCE ASSOCIATE Temperature 36.7 C (98.1 F) 01/12/2023 8:24 AM MAINTENANCE ASSOCIATE Respiratory Rate 18 01/12/2023 8:24 AM MAINTENANCE ASSOCIATE Oxygen Saturation 98% 01/12/2023 8:24 AM MAINTENANCE ASSOCIATE Inhaled Oxygen Concentration - - Weight 99.2 kg (218 lb 12.8 oz) 01/12/2023 8:24 AM MAINTENANCE ASSOCIATE Height 180.3 cm (5' 11) 01/12/2023 8:24 AM MAINTENANCE ASSOCIATE Body Mass Index 30.52 01/12/2023 8:24 AM MAINTENANCE ASSOCIATE Plan of Treatment Not on file Insurance C[employer] LINK Care Teams Full Time Babysitter Relationship Specialty Start Date End Date Noe Cantu MD [address] [place] [address] PCP - General Internal Medicine 09/29/22
--- OUTSIDE RECORDS SUMMARY | 2024-09-21 09:42 | XMS_ITS | Clinical Summary ---
Author Organization [facility] [employer] Address [address] [place] [address] Care Team Providers Care Hair Colorist Name Role Phone Noe Cantu MD Primary Care Provider [phone] Source Comments [facility],non-owned Affiliates and Associated Physician Practices is amultiple site organization consisting of ambulatory clinics and hospital sitesin [place], [place], [place] and [place]. This disclosure is being madepursuant to the Care Everywhere program and may not contain all information available regarding this patient. Last updated 17.[facility] Active Problems Problem Noted Date Diagnosed Date [...] on file Legal Sex Male 6:06 PM SUPERVISOR SHAVING AND SPLITTING Gender Identity Not on file Sexual Orientation Not on file Last Filed Vital Signs Vital Sign Reading Time Taken Comments Blood Pressure 140/70 04/03/2014 9:23 AM SUPERVISOR SHAVING AND SPLITTING Pulse 62 01/09/2014 11:49 AM SUPERVISOR SHAVING AND SPLITTING Temperature 37.1 C (98.8 F) 01/09/2014 11:49 AM SUPERVISOR SHAVING AND SPLITTING Respiratory Rate 18 12/23/2013 3:00 PM CDT [...] topic Insurance CIGNA CIGNA CIGNA Care Teams Hair Colorist Relationship Specialty Start Date End Date Noe Cantu MD PCP - General 01/09/14
--- OUTSIDE RECORDS SUMMARY | 2024-09-21 09:42 | XMS_ITS | Clinical Summary ---
Author Organization [facility] Address [address] [place] [address] Care Team Providers Care Well Flow Operator Name Role Phone Noe Cantu MD Primary Care Provider [phone] Allergies Active Allergy Reactions Criticality Noted Date [...] on file Legal Sex Male 5:32 PM ENROLLMENT ADVISOR Gender Identity Not on file Sexual Orientation Not on file Obstetrics History Last Filed Vital Signs Vital Sign Reading Time Taken Comments Blood Pressure 115/73 01/12/2023 8:24 AM ENROLLMENT ADVISOR Pulse 57 01/12/2023 8:24 AM ENROLLMENT ADVISOR Temperature 36.7 C (98.1 F) 01/12/2023 8:24 AM ENROLLMENT ADVISOR Respiratory Rate 18 01/12/2023 8:24 AM ENROLLMENT ADVISOR Oxygen Saturation 98% 01/12/2023 8:24 AM ENROLLMENT ADVISOR Inhaled Oxygen Concentration - - Weight 99.2 kg (218 lb 12.8 oz) 01/12/2023 8:24 AM ENROLLMENT ADVISOR Height 180.3 cm (5' 11) 01/12/2023 8:24 AM ENROLLMENT ADVISOR Body Mass Index 30.52 01/12/2023 8:24 AM ENROLLMENT ADVISOR Plan of Treatment Health Maintenance Due Date [...] season) 2023 01/19/2021, 05/26/2020, 05/05/2020 Influenza Vaccine (#1) 2024 01/28/2021, 2013 DTaP/Tdap/Td Vaccine (2 - Td or Tdap) 08/15/2029 Zoster Vaccine Completed 02/19/2020, 08/16/2019 Insurance CIGNA CIGNA THE LINK Care Teams Well Flow Operator Relationship Specialty Start Date End Date Noe Cantu MD [address] [place] [address] PCP - General Internal Medicine 09/29/22
[2024-09-21 10:42] LABS: Prostate Specific Antigen < 0.1 ng/mL (< OR = 4.0)
== END 2024-09-21 09:40 | disposition home or self-care (01) ==
PROVIDERS: PCP Internal Medicine; Visit Provider Urology
DX: C61 Malignant neoplasm of prostate (principal)
CPT/HCPCS: 36415; 84153; G0103